=== PATIENT | female | born 1965 | race Caucasian/White ===

== ENCOUNTER 2017-12-08 05:31 | Inpatient (IN) | payer OTHER ==
[2017-12-07] MEDS: DEXAMETHASONE 1 MG TAB PO (06:00)
[2017-12-08] MEDS: TRANEXAMIC ACID 1,000 MG in DEXTROSE 5% 100 ML IVPB (06:00)
[2017-12-08] MEDS: CEFAZOLIN 2 GM/50 ML (PMX) 50 ML IVPB (06:00)
[2017-12-08] MEDS: THROMBIN 5000 UNIT VIAL (06:54)
[2017-12-08] MEDS: POLYMYXIN/BACITRACIN 1L IRRIG (06:54)
[2017-12-08] MEDS: CA CHLORIDE 10% 10 ML SYRINGE (06:54)
[2017-12-08] MEDS: traMADol 50 MG TAB PO (06:58)
[2017-12-08] MEDS: GABAPENTIN 300 MG CAP PO ×2 (06:58→21:56)
[2017-12-08] MEDS: DEXAMETHASONE 1 MG TAB PO (06:59)
[2017-12-08] MEDS: SOD CHLORIDE 0.9% 100 ML, TRANEXAMIC ACID 3,000 MG IRR (07:00)
[2017-12-08] MEDS ORDERED: ONDANSETRON 4 MG INJ IV ×2 (07:00→09:30)
[2017-12-08] MEDS ORDERED: LABETALOL HCL 20MG INJ IV (07:00)
[2017-12-08] MEDS ORDERED: hydrALAzine 20 MG INJ IV (07:00)
[2017-12-08] MEDS ORDERED: OXYCODONE/ACETAMINOPHEN (5/325) TAB PO ×3 (07:00→09:30)
[2017-12-08] MEDS ORDERED: ZOLPIDEM 5 MG TAB PO ×2 (07:00→09:30)
[2017-12-08] MEDS ORDERED: IPRATROPIUM (NEB) 0.5 MG/2.5 ML AMP HHN (07:00)
[2017-12-08] MEDS ORDERED: NALOXONE (0.4 MG/ML) INJ IV (07:00)
[2017-12-08] MEDS ORDERED: MIDAZOLAM 1 MG/ML 2 ML INJ IV (07:00)
[2017-12-08] MEDS ORDERED: FENTAnyl 50 MCG/ML VIAL IV ×3 (07:00)
[2017-12-08] MEDS ORDERED: HYDROmorphONE 0.5 MG/0.5 ML SYG IV ×2 (07:00)
[2017-12-08] MEDS ORDERED: EPHEDrine SULFATE 50 MG/5 ML SYG IV (07:00)
[2017-12-08] MEDS ORDERED: HYDROmorphONE 1 MG/5 ML IV SYRINGE IV ×3 (07:00)
[2017-12-08] MEDS ORDERED: NALBUPHINE HCL (10 MG/1 ML) INJ IV (07:00)
[2017-12-08] MEDS ORDERED: TRIMETHOBENZAMIDE 100 MG/ML VIAL IM ×2 (07:00)
[2017-12-08] MEDS ORDERED: KETOROLAC 30 MG INJ IV (07:00)
[2017-12-08] MEDS ORDERED: ALBUTEROL 0.083% (NEB) 2.5 MG/3 ML AMP HHN (07:00)
[2017-12-08] MEDS ORDERED: MEPERIDINE 25 MG INJ IV (07:00)
[2017-12-08] MEDS ORDERED: DIPHENHYDRAMINE 50 MG INJ IV ×2 (07:00→09:30)
[2017-12-08] MEDS ORDERED: NEOSTIGMINE 3 MG/3 ML SYRINGE (07:04)
[2017-12-08] MEDS ORDERED: CEFAZOLIN 1 GM INJ (07:04)
[2017-12-08] MEDS ORDERED: FENTAnyl 50 MCG/ML VIAL (07:04)
[2017-12-08] MEDS ORDERED: GLYCOPYRROLATE 0.4 MG INJ (07:04)
[2017-12-08] MEDS ORDERED: ONDANSETRON 4 MG INJ (07:04)
[2017-12-08] MEDS ORDERED: MIDAZOLAM 1 MG/ML 2 ML INJ (07:04)
[2017-12-08] MEDS ORDERED: PROPOFOL 20 ML (07:04)
[2017-12-08] MEDS ORDERED: ROCURONIUM 50 MG INJ (07:04)
[2017-12-08] MEDS ORDERED: DEXAMETHASONE 4 MG/ML 1 ML INJ (07:04)
[2017-12-08] MEDS ORDERED: morphine SULFATE/PF (10 MG/10 ML) INJ (07:05)
[2017-12-08] MEDS ORDERED: BUPIVACAINE 0.5% (SDV) 30 ML, morphine SULFATE (PF) 8 MG, EPINEPHrine 0.3 MG, KETOROLAC... IRR (07:30)
[2017-12-08] MEDS: LACTATED RINGER'S 1,000 ML IV ×2 (09:24→16:46)
[2017-12-08] MEDS ORDERED: morphine 2 MG INJ IV ×2 (09:30)
[2017-12-08] MEDS ORDERED: MAGNESIUM HYDROXIDE 30ML CUP PO (09:30)
[2017-12-08] MEDS ORDERED: ACETAMINOPHEN 500 MG TAB PO (09:30)
[2017-12-08] MEDS ORDERED: CEFAZOLIN 1 GM/50 ML (PMX) 50 ML IVPB (10:07)
[2017-12-08] MEDS: DIPHENHYDRAMINE 50 MG INJ IV (10:08)
[2017-12-08] MEDS: TRANEXAMIC ACID 1,000 MG in DEXTROSE 5% 100 ML IV (10:41)
[2017-12-08] MEDS: CEFAZOLIN 1 GM/50 ML (PMX) 50 ML IVPB ×3 (10:41→21:56)
[2017-12-08 12:10] LABS: ADD MAN DIFF? NO
[2017-12-08 12:13] LABS: WHITE BLOOD COUNT 21.1 10^3/ul (4.8-10.8)
[2017-12-08 12:13] LABS: BASOPHILS % 0.1 % (0.0-2.0); EOSINOPHILS % 0.1 % (0.0-7.0); HEMATOCRIT 35.2 % (37.0-47.0); HEMOGLOBIN 11.5 g/dl (12.0-16.0); LYMPHOCYTES # 1.1 10^3/ul (0.8-2.9); LYMPHOCYTES % 5.4 % (15.0-51.0); MEAN CORPUSCULAR HEMOGLOBIN 29.6 pg (29.0-33.0); MEAN CORPUSCULAR HGB CONC 32.7 g/dl (32.0-37.0); MEAN CORPUSCULAR VOLUME 90.5 fl (82.0-101.0); MEAN PLATELET VOLUME 9.6 fl (7.4-10.4); MONOCYTE # 0.4 10^3/ul (0.3-0.9); MONOCYTES % 2.1 % (0.0-11.0); NEUTROPHIL # 19.2 10^3/ul (1.6-7.5); NEUTROPHILS % 91.4 % (39.0-77.0); PLATELET COUNT 330 10^3/UL (140-415); RED BLOOD COUNT 3.89 10^6/ul (4.20-5.40)
[2017-12-08] MEDS ORDERED: DESFLURANE 15 MIN INH (12:44)
[2017-12-08] MEDS: DEXAMETHASONE 2 MG TAB PO ×2 (12:53→18:13)
[2017-12-08] MEDS: KETOROLAC 15 MG INJ IV (16:00)
[2017-12-08] MEDS: ONDANSETRON 4 MG INJ IV (18:48)
[2017-12-08] MEDS: SENNA/DOCUSATE NA (8.6MG/50MG) TAB PO (21:55)
[2017-12-08] MEDS: PROGESTERONE 100 MG CAP PO (22:02)
[2017-12-09] MEDS: DEXAMETHASONE 2 MG TAB PO ×2 (00:32→05:42)
[2017-12-09] MEDS: KETOROLAC 15 MG INJ IV ×2 (00:39→06:37)
[2017-12-09] MEDS: ONDANSETRON 4 MG INJ IV ×2 (00:40→06:36)
[2017-12-09 05:04] LABS: ADD MAN DIFF? NO
[2017-12-09 05:12] LABS: BASOPHILS % 0.1 % (0.0-2.0); HEMATOCRIT 28.6 % (37.0-47.0); HEMOGLOBIN 9.4 g/dl (12.0-16.0); LYMPHOCYTES # 0.9 10^3/ul (0.8-2.9); LYMPHOCYTES % 6.1 % (15.0-51.0); MEAN CORPUSCULAR HEMOGLOBIN 29.4 pg (29.0-33.0); MEAN CORPUSCULAR HGB CONC 32.9 g/dl (32.0-37.0); MEAN CORPUSCULAR VOLUME 89.4 fl (82.0-101.0); MONOCYTE # 0.9 10^3/ul (0.3-0.9); MONOCYTES % 5.9 % (0.0-11.0); NEUTROPHIL # 13.4 10^3/ul (1.6-7.5); NEUTROPHILS % 87.2 % (39.0-77.0); PLATELET COUNT 273 10^3/UL (140-415); RED CELL DISTRIBUTION WIDTH 13.1 % (11.5-14.5)
[2017-12-09 05:12] LABS: WHITE BLOOD COUNT 15.3 10^3/ul (4.8-10.8)
[2017-12-09] MEDS: LACTATED RINGER'S 1,000 ML IV (05:39)
[2017-12-09] MEDS: CEFAZOLIN 1 GM/50 ML (PMX) 50 ML IVPB (05:40)
[2017-12-09] MEDS: PROPRANOLOL (LA) 60 MG CAP PO (08:47)
[2017-12-09] MEDS: SENNA/DOCUSATE NA (8.6MG/50MG) TAB PO (08:48)
[2017-12-09] MEDS: ASPIRIN 81 MG TAB PO (08:48)
[2017-12-09] MEDS: ESCITALOPRAM 10 MG TAB PO (08:48)
[2017-12-09] MEDS ORDERED: NON-FORMULARY/PATIENT OWN MED (Icosapent Ethyl (Vascepa) 1 GM) PO (09:00)
[2017-12-09] MEDS ORDERED: PROPRANOLOL 20 MG TAB PO (09:00)
[2017-12-09] MEDS: OXYCODONE/ACETAMINOPHEN (5/325) TAB PO (10:07)
== END 2017-12-09 12:45 | disposition home or self-care (01) | DRG 470 ==
LOC: REC 05:31 → MS1 11:18
PROVIDERS: Orthopaedic Surgery
PROC: 0SRB04A Replacement of Left Hip Joint with Ceramic on Polyethylene Synthetic Substitute, Uncemented, Open Approach (ICD-10-PCS; principal; 2017-12-08 07:00)
DX: M16.12 Unilateral primary osteoarthritis, left hip (principal); R00.0 Tachycardia, unspecified; E66.9 Obesity, unspecified; Z79.899 Other long term (current) drug therapy; Z68.32 Body mass index [BMI] 32.0-32.9, adult
CPT/HCPCS: 72170; 73530; 85025; 86999; 87086; 88304; 88311; 97116; 97161